=== PATIENT | male | born 1980 | race Hispanic/Latino ===

== ENCOUNTER 2017-06-26 08:32 | Emergency (ER) | payer OTHER ==
[~2017-06-26] VITALS: Ht 172.7 cm; Wt 81.6 kg
[~2017-06-26 08:32] MED LIST: ALBUTEROL0.09 MG/A1 INH; AMOXIL 875 MG875 MG PO; ANTIVERT12.5 MG PO; BACTRIM DS TAB1 EACH PO; CELEXA20 MG; CHERATUSSIN AC118 M1 PO; FLEXERIL10 MG PO; KEFLEX500 M1 PO; LIORESAL 10MG T10 MG PO; LORAZEPAM1 MG; PERCOCET 325 MG1 TA2 PO; PERCOCET 5-3251 EACH PO; PREDNISONE 20MG20 MG PO; TESSALON PERLE100 M1 PO; TESSALON PERLE100 MG PO; TRAMADOL50 MG PO; TYLENOL #31 TAB PO; ZITHROMAX500 M2 PO; ZOFRAN4 MG PO
[2017-06-26 08:36] VITALS: BP 147/99
--- NOTE | 2017-06-26 08:42 | ED INFLUENZA/URI COMPLAINT ---
History of Present Illness General Chief Complaint: Upper Respiratory Sx/Fever Stated Complaint: WEAKNESS,COUGH/RT SHOULDER PAIN X 1WEEK Source: patient Exam Limitations: no limitations Vital Signs & Intake/Output Vital Signs & Intake/Output Vital Signs Date Time Temp Pulse Resp B/P B/P Pulse O2 O2 Flow FiO2 Mean Ox Delivery Rate 06/26 0836 96.5 110 16 147/99 99 Room Air Allergies Coded Allergies: fluticasone (From ADVAIR DISKUS) (Severe, HIVES 08/13/15) prednisone (Severe, RASH 08/13/15) salmeterol (From ADVAIR DISKUS) (Severe, HIVES 08/13/15) Reconcile Medications Albuterol Sulfate (Ventolin Hfa) 90 MCG HFA.AER.AD 2 PUF INH Q4-6 PRN PRN SHORTNESS OF BREATH Benzonatate (Tessalon Perle) 100 MG CAPSULE 1 CAP PO TID PRN COUGH Codeine Phosphate/Guaifenesi (Cheratussin AC Syrup) 10 MG-100 MG/5 ML LIQUID 10 ML PO QPM PRN COUGH DO NOT TAKE MEDICATION WHILE OPERATING MOTOR VEHICLES Meloxicam (Mobic) 15 MG TABLET 1 TAB PO DAILY PRN pain Triage Nurses Notes Reviewed? yes Onset: Gradual Duration: constant Timing: recent history Severity: moderate Severity Numbers: 5 HPI: Patient is a 36 year old male who presents emergency room with 2 complaints, patient states that 1 week ago while lifting his child with his upper extremities he had acute onset of right shoulder pain and since he's been complaining of achy pain however waking up today his symptoms have worsened. Patient has right arm dominant. Patient has not taken any medications for symptoms. Patient states he also has developed 24-hour history of head congestion and nasal congestion cough and itchy scratchy throat. No smoking history denies any similar sick contacts denies any chest pain arm pain jaw pain shortness of breath fevers (Osbaldo Mcmanus) Past History Medical History Any Pertinent Medical History? see below for history Neurological: NONE EENT: NONE Cardiovascular: NONE Respiratory: NONE Gastrointestinal: NONE Hepatic: NONE Renal: NONE Musculoskeletal: NONE Psychiatric: insomnia Endocrine: NONE Blood Disorders: NONE Cancer(s): NONE DIRECTOR OF SCIENCE/Reproductive: NONE Surgical History Surgical History: KNEE SX Psychosocial History What is your primary language Ukrainian Family History Hx Contributory? No (Osbaldo Mcmanus) Review of Systems Review of Systems Constitutional: Reports: no symptoms. EENTM: Reports: see HPI. Respiratory: Reports: see HPI, cough. Cardiovascular: Reports: no symptoms. GI: Reports: no symptoms. Genitourinary: Reports: no symptoms. Musculoskeletal: Reports: see HPI. Skin: Reports: no symptoms. Neurological/Psychological: Reports: no symptoms. Hematologic/Endocrine: Reports: no symptoms. Immunologic/Allergic: Reports: no symptoms. All Other Systems: Reviewed and Negative (Osbaldo Mcmansu) Physical Exam Physical Exam General Appearance: no apparent distress, alert, comfortable Head: atraumatic Eyes: Bilateral: normal appearance, PERRL. Ears, Nose, Throat: moist mucous membrane, hearing grossly normal, Tympanic normal, pharynx normal, nasal congestion, NONTENDER SINUS Neck: normal inspection, supple, no midline tenderness Respiratory: normal breath sounds, chest non-tender, no respiratory distress Cardiovascular: tachycardia Gastrointestinal: normal bowel sounds, soft, non-tender Extremities: normal inspection, normal range of motion, no edema Neurologic/Psych: no motor/sensory deficits, awake, alert, oriented x 3, normal gait Skin: intact, normal color, warm/dry Comments: Right shoulder noted acromioclavicular point tenderness full active range of motion with pain above 90 of flexion abduction 5 out of 5 resisted range of motion noted with flexion abduction and internal rotation EXTERNAL rotation. Right elbow normal inspection nontender Right upper extremity dermatomes intact radial pulse +2 Core Measures Sepsis Present: No Sepsis Focused Exam Completed? No (Osbaldo Mcmanus) Progress Differential Diagnosis: influenza, meningitis, neutropenia, otitis, pneumonia, pharyngitis, sinusitis Plan of Care: Orders Procedure Date/time Status RAPID VIRAL INFLUENZA A 06/26 08 Complete Microbiology 06/26 0846 NASOPHARYN: Influenza Virus A & B Rapid Smear - COMP Differential diagnosis Tendinitis fracture strain sprain Patient on initial presentation was afebrile nontoxic appearing clear lungs auscultation nontender sinus X-rays will be obtained most likely at this time no suspicion of viral syndrome upper respiratory infection influenza was negative X-rays are unremarkable for osseous injury or acute pulmonary process. Discussed disposition plan an x-ray was also patient and he will comply and has no cautions Diagnostic Imaging: Viewed by Me: Radiology Read. Radiology Impression: no acute abnormality Initial ED EKG: none Comments: PATIENT: LOUISA ROSARIO PRESENT AGE: 36 PATIENT ACCOUNT NO: [id number] : 80 LOCATION: [facility] ORDERING PHYSICIAN: Osbaldo LINDSEY SERVICE DATE: 06/26/17 EXAM TYPE: RAD - XRY-CHEST XRAY, TWO VIEWS; XRY-SHOULDER COMPLETE-RIGHT EXAMINATION: XR CHEST AND X-RAY SHOULDER, RIGHT CLINICAL INFORMATION: Cough. Right shoulder pain. COMPARISON: Chest x-ray dated 09/30/2014 TECHNIQUE: PA and lateral chest AP external rotation, Grashey, scapular Y, and axillary views of the right shoulder. FINDINGS: CHEST X-RAY Cardiomediastinal silhouette is within normal limits. Lungs are clear. Bony thorax is intact. RIGHT SHOULDER The bones and soft tissues are normal. No fracture. Glenohumeral and acromioclavicular alignment is anatomic with normal joint space. No abnormal soft tissue calcifications. IMPRESSION: 1. No acute pulmonary disease. 2. Unremarkable right shoulder. DICTATED BY: Analilia Mancuso MD DATE/TIME DICTATED:06/26/17910 SIGNAL CIRCUIT DESIGNER:DONAVON DATE/TIME TRANSCRIBED:06/26/17 / (Pranav LINDSEY,Osbaldo) Departure Departure Disposition: HOME OR SELF CARE Condition: Stable Clinical Impression Primary Impression: URI (upper respiratory infection) Referrals: Tabby DAHL,Shravan Peguero (PCP/Family) Roxie DAHL,Ibrahima Additional Instructions: As discussed begin the prescription of Cheratussin Tessalon Perles for cough Flonase for congestion [id number] Sudafed for congestion if no better in 3 days follow up with your doctor. Begin icing the area of your right shoulder 20 minutes every 2 hours begin the prescription of meloxicam for pain and inflammation, if no better in one week for your right shoulder please follow up with orthopedic Dr. Faustin for further evaluation treatment, prescriptions waiting at [facility]. If symptoms worsen return to emergency room Departure Forms: Customer Survey General Discharge Information Prescriptions: Current Visit Scripts Benzonatate (Tessalon Perle) 1 CAP PO TID PRN COUGH #21 CAP Codeine Phosphate/Guaifenesi (Cheratussin AC Syrup) 10 ML PO QPM PRN COUGH #100 ML DO NOT TAKE MEDICATION WHILE OPERATING MOTOR VEHICLES Albuterol Sulfate (Ventolin Hfa) 2 PUF INH Q4-6 PRN PRN SHORTNESS OF BREATH #1 INHAL Meloxicam (Mobic) 1 TAB PO DAILY PRN pain #10 TAB (Osbaldo Mcmanus) PA/REHABILITATION SPECIALIST Co-Sign Statement Statement: ED Attending supervision documentation- I saw and evaluated the patient. I have also reviewed all the pertinent lab results and diagnostic results. I agree with the findings and the plan of care as documented in the PA's/REHABILITATION SPECIALIST's documentation. x I have reviewed the ED Record and agree with the PA's/REHABILITATION SPECIALIST's documentation. [] Additions or exceptions (if any) to the PAs/REHABILITATION SPECIALIST's note and plan are summarized below: [] (Angeles DAHL,Darrell)
--- NOTE | 2017-06-26 09:18 | RADIOLOGY REPORT ---
EXAMINATION: XR CHEST AND X-RAY SHOULDER, RIGHT CLINICAL INFORMATION: Cough. Right shoulder pain. COMPARISON: Chest x-ray dated 09/30/2014 TECHNIQUE: PA and lateral chest AP external rotation, Grashey, scapular Y, and axillary views of the right shoulder. FINDINGS: CHEST X-RAY Cardiomediastinal silhouette is within normal limits. Lungs are clear. Bony thorax is intact. RIGHT SHOULDER The bones and soft tissues are normal. No fracture. Glenohumeral and acromioclavicular alignment is anatomic with normal joint space. No abnormal soft tissue calcifications. IMPRESSION: 1. No acute pulmonary disease. 2. Unremarkable right shoulder.
[2017-06-26] MEDS ORDERED: VENTOLIN HFA18 GM INH (09:20)
[2017-06-26] MEDS ORDERED: CHERATUSSIN AC118 M1 PO (09:20)
[2017-06-26] MEDS ORDERED: TESSALON PERLE100 M1 PO (09:20)
[2017-06-26] MEDS ORDERED: MOBIC15 M1 PO (09:21)
== END 2017-06-26 09:36 ==
LOC: ERH 08:32
DX: J06.9 Acute upper respiratory infection, unspecified (principal)
CPT/HCPCS: 71046; 73030-RT; 87804; 87804-59